=== PATIENT | male | born 1985 | race Caucasian/White ===

== ENCOUNTER 2017-08-20 18:46 | Emergency (ER) | payer MEDICAID ==
[~2017-08-20] VITALS: Ht 180.3 cm; Wt 107.3 kg
[2017-08-20 19:39] VITALS: BP 129/68
== END 2017-08-20 20:13 | disposition left against medical advice (07) ==
LOC: ER 18:47
DX: R07.89 Other chest pain (principal); R50.9 Fever, unspecified; Z53.21 Procedure and treatment not carried out due to patient leaving prior to being seen by health care provider

== ENCOUNTER 2020-06-20 22:11 | Emergency (ER) | payer MEDICAID, OTHER ==
[~2020-06-20] VITALS: Ht 180.3 cm; Wt 59.1 kg
[2020-06-20] MEDS ORDERED: acetaminophen 325mg tablet PO ONE (22:40)
[2020-06-20] MEDS ORDERED: ketorolac trometh inj. 60 MG/2 ML VIAL IM ONE (22:40)
[2020-06-20 23:02] VITALS: BP 130/73
== END 2020-06-20 23:03 | disposition home or self-care (01) ==
LOC: ER 22:12
DX: M25.561 Pain in right knee (principal)
CPT/HCPCS: 73564; 96372; 99283; J1885

== ENCOUNTER 2022-11-22 18:25 | Emergency (ER) | payer OTHER | END 2022-11-22 18:50 | disposition left against medical advice (07) | LOC: ER 18:26 | DX: Z00.8 Encounter for other general examination (principal); Z53.21 Procedure and treatment not carried out due to patient leaving prior to being seen by health care provider ==

== ENCOUNTER 2023-11-09 21:57 | Emergency (ER) | payer OTHER ==
[~2023-11-09] VITALS: Ht 180.3 cm; Wt 56.8 kg
[2023-11-09] MEDS ORDERED: SULF1TAB49 PO (23:06)
[2023-11-09 23:34] VITALS: BP 121/68; PULSE 74; RESP 14; TEMP 98.6; O2SAT 99
== END 2023-11-09 23:35 | disposition home or self-care (01) ==
LOC: ER 21:57
DX: L02.212 Cutaneous abscess of back [any part, except buttock and flank] (principal); Z88.0 Allergy status to penicillin; Z88.1 Allergy status to other antibiotic agents
CPT/HCPCS: 10060; 99283

== ENCOUNTER 2023-12-18 16:37 | Emergency (ER) | payer OTHER ==
[~2023-12-18] VITALS: Ht 180.3 cm; Wt 128.3 kg
[2023-12-18 17:51] VITALS: TEMP 98
[2023-12-18] MEDS: sulfamethoxazole/trimethoprim DS (800/160mg) tablet PO ONE (18:59)
[2023-12-18] MEDS: CefTRIAXone 1000mg IM Kit (w/lidocaine diluent) IM ONE (19:01)
[2023-12-18] MEDS ORDERED: CEPH-585 PO (19:10)
[2023-12-18] MEDS ORDERED: SULF1TAB49 PO (19:10)
[2023-12-18 19:30] VITALS: BP 133/78; PULSE 77; RESP 19; O2SAT 98
== END 2023-12-18 19:32 | disposition home or self-care (01) ==
LOC: ER 16:38
DX: L73.2 Hidradenitis suppurativa (principal); Z88.0 Allergy status to penicillin; Z88.1 Allergy status to other antibiotic agents
CPT/HCPCS: 96372; 99283; J0696